=== PATIENT | male | born 1945 | race Caucasian/White ===

== ENCOUNTER 2018-01-08 20:51 | Observation (INO) | payer OTHER ==
--- NOTE | 2018-01-08 20:59 | PDOC ---
History of Present Illness - General History Source: Patient Exam Limitations: No Limitations - History of Present Illness Initial Comments: 01/08/18 21:40 The patient is a 72 year old female with a significant PMH of Type 2 diabetes, HTN, HLD, chronic kidney disease, and panic attacks who presents to the emergency department after accidentally taking a second Zoloft at 8:15PM today. The patient states he typically takes Zoloft 200mg and metformin 1000mg. The patient reports confusing the Zoloft for the metformin and accidentally taking a second dose of Zoloft. The patient was concerned about taking double his dose of Zoloft prompting him to call poison control who advised he should come to the ER for evaluation. The patient denies any symptoms after taking the medication. The patient denies difficulty ambulating, palpitations, chest pain, shortness of breath, headache, lightheadedness, and dizziness. Denies fever, chills, nausea, vomit, diarrhea and constipation. Denies dysuria, frequency, urgency and hematuria. Allergies: NKA Past surgical history: None reported. Social history: No reported alcohol, drug, or cigarette use. PCP: Dr. Henry. Medications: Atorvastatin, Zoloft, Valsartan, Alprazolam, Aspirin, and Metformin <Jazz Hudson - Last Filed: 01/08/18 21:39> <Belkis Quinn - Last Filed: 01/09/18 05:03> - General Chief Complaint: Overdose Stated Complaint: TOOK AN EXTRA ZOLOFT Time Seen by Provider: 01/08/18 20:58 Past History <Jazz Hudson - Last Filed: 01/08/18 21:39> - Past Medical History Diabetes: Yes HTN: Yes Hypercholesterolemia: Yes Kidney Stones: (CHRONIC KIDNEY DISEASE) Psychiatric Problems: Yes (PANIC ATTACK) - Immunization History Immunization Up to Date: Yes - Suicide/Smoking/Psychosocial Hx Smoking Status: No Smoking History: Never smoked Have you smoked in the past 12 months: No Number of Cigarettes Smoked Daily: 0 Hx Alcohol Use: No Drug/Substance Use Hx: No Substance Use Type: None <Belkis Quinn - Last Filed: 01/09/18 05:03> - Past Medical History Allergies/Adverse Reactions: Allergies Allergy/AdvReac Type Severity Reaction Status Date / Time epinephrine AdvReac Verified 10/29/15 13:50 Home Medications: Ambulatory Orders Atorvastatin Ca [Lipitor] 10 mg PO DAILY 02/17/12 Sertraline HCl [Zoloft] 200 mg PO DAILY 02/17/12 Valsartan/Hydrochlorothiazide [Diovan Hct 160-25 mg Tablet] 1 combo PO DAILY 19/07 Alprazolam 0.5 mg PO TID 10/29/15 Aspirin [Ecotrin] 81 mg PO DAILY 10/29/15 metFORMIN HCL [Metformin HCl] 1,000 mg PO BID 10/29/15 Review of Systems - Review of Systems Able to Perform ROS?: Yes Comments:: 01/08/18 21:39 Remainder of the review of systems is negative. <Jazz Hudson - Last Filed: 01/08/18 21:39> *Physical Exam - Vital Signs Last Vital Signs Temp Pulse Resp BP Pulse Ox 98.6 F 94 H 16 168/87 100 01/08/18 21:01 01/08/18 21:01 01/08/18 21:01 01/08/18 21:01 01/08/18 21:01 - Physical Exam Comments: 01/08/18 21:40 GENERAL: Awake, alert, and fully oriented, in no acute distress HEAD: No signs of trauma EYES: PERRLA, EOMI, sclera anicteric, conjunctiva clear ENT: Auricles normal inspection, hearing grossly normal, nares patent, oropharynx clear without exudates. Moist mucosa NECK: Normal ROM, supple, no lymphadenopathy, JVD, or masses LUNGS: Breath sounds equal, clear to auscultation bilaterally. No wheezes, and no crackles HEART: Regular rate and rhythm, normal S1 and S2, no murmurs, rubs or gallops ABDOMEN: (+) Upper abdominal hernia, nontender. Soft, nontender, normoactive bowel sounds. No guarding, no rebound. No masses EXTREMITIES: Normal range of motion, no edema. No clubbing or cyanosis. No cords, erythema, or tenderness NEUROLOGICAL: Cranial nerves II through XII grossly intact. Normal speech, normal gait SKIN: Warm, Dry, normal turgor, no rashes or lesions noted. <Jazz Hudson - Last Filed: 01/08/18 21:39> ED Treatment Course - LABORATORY CBC & Chemistry Diagram: 01/08/18 22:15 01/08/18 22:15 <Belkis Quinn - Last Filed: 01/09/18 05:03> Medical Decision Making - Medical Decision Making Documentation has been prepared under my direction and personally reviewed by me in its entirety. I attest that this documented accurately reflects all work, treatment, procedures and medical decision making performed by me. As noted above, this 72-year-old man with multiple medical problems and anxiety/ panic attacks for which he has taken Zoloft for 20 years, inadvertently took extra dose (200 mg) at 8:15 PM tonight. He had taken his morning dose as usual. He is asymptomatic except for feeling anxious regarding taking the extra dose. He had spoken to poison control and was advised to come to the emergency room. Physical exam reveals vital signs that are normal and no significant abnormalities on exam. 12-lead electrocardiogram is performed and shows normal sinus rhythm 81 bpm; intervals, axis and wave forms are all normal Poison control contacted. Workers Compensation Adjuster Bill (who had spoken to the patient and advised pt to come to the ED) explained that after 250 mg of sertraline was consumed in a 24-hour period, seizure threshold is decreased and serotonin syndrome possible. Therefore, 12 hour observation period is advised. The patient was informed of this and consents to plan. CBC/chemistry profile sent 01/08/18 23:01 Laboratory evaluation completed: CBC is essentially normal. Chemistry profile notable for BUN 28/creatinine 1.6. Previous creatinine value on record here was 1.3(10/29/15) Patient is unaware of his baseline BUN/creatinine levels, stating that he was unaware that he had any renal insufficiency. Other than mild elevation of random glucose (236), no other significant abnormalities on chemistry profile Case discussed with CASSIDY Hong of [facility]. Patient will be admitted under observation status. Urine tox screen added. <Belkis Quinn - Last Filed: 01/09/18 05:03> *DC/Admit/Observation/Transfer - Attestations Scribe Attestion: 01/08/18 21:40 Documentation prepared by Jazz Hudson, acting as medical biller for Belkis Quinn MD. <Jazz Hudson - Last Filed: 01/08/18 21:39> - Discharge Dispostion Decision to Admit order: Yes <Belkis Quinn - Last Filed: 01/09/18 05:03> Diagnosis at time of Disposition: Accidental drug overdose Qualifiers: Encounter type: initial encounter Qualified Code(s): T50.901A - Poisoning by unspecified drugs, medicaments and biological substances, accidental ( unintentional), initial encounter - Discharge Dispostion Condition at time of disposition: Stable
[2018-01-08] MEDS ORDERED: metFORMIN HCL 500 MG TABLET (FP) PO ONE (21:36)
[2018-01-08] MEDS ORDERED: metFORMIN HCL 500 MG TABLET (FP) ONE (21:45)
[2018-01-08 22:39] LABS: BASO % 0.8 % (0-2.0); EOS % 3.5 % (0-4.5); HEMATOCRIT 39.6 % (35.4-49); HEMOGLOBIN 13.8 GM/dl (11.7-16.9); LYMPH % 19.7 % (8-40); MCHC 34.8 g/dl (32.0-35.9); MEAN CELL VOLUME 86.2 fl (80-96); MEAN PLT VOLUME 7.4 fl (7.5-11.1); MONO % 8.9 % (3.8-10.2); NEUT % 67.1 % (42.8-82.8); PLATELET COUNT 271 K/MM3 (134-434); RDW 12.6 % (11.9-15.9); WHITE BLOOD COUNT 6.5 K/mm3 (4.0-10.8)
[2018-01-08 22:46] LABS: ALBUMIN 4.3 g/dl (3.5-5.0); ALK PHOS 34 U/L (32-92); ANION GAP 8 (8-16); BILIRUBIN,TOTAL 0.3 mg/dl (0.2-1.0); BLOOD UREA NITROGEN 28 mg/dl (7-18); CALCIUM 8.9 mg/dl (8.4-10.2); CHLORIDE 99 mmol/L (98-107); CO2 25 mmol/L (22-28); CREATININE 1.6 mg/dl (0.6-1.3); GLUCOSE,RANDOM 236 mg/dl (74-106); POTASSIUM 3.5 mmol/L (3.5-5.1); SGOT/AST 22 U/L (10-42); SGPT/ALT 16 U/L (10-40); SODIUM 132 mmol/L (136-145); TOT PROT 6.8 g/dl (6.4-8.3)
[2018-01-09 00:31] VITALS: TEMP 98; BMI 25.8
[2018-01-09 00:53] LABS: URINE APPEARANCE CLEAR; URINE BILIRUBIN NEGATIVE (<2.0 mg/dL); URINE BLOOD NEGATIVE (NEGATIVE); URINE COLOR STRAW; URINE GLUCOSE (UA) NEGATIVE (NEGATIVE); URINE KETONE NEGATIVE (NEGATIVE); URINE LEUK ESTERASE NEGATIVE (NEGATIVE); URINE NITRITE NEGATIVE (NEGATIVE); URINE PROTEIN NEGATIVE (NEGATIVE); URINE UROBILINOGEN NEGATIVE mg/dL (0.2-1.0)
[2018-01-09 01:01] LABS: COCAINE, UR NEGATIVE ng/ml (CUTOFF=300); METHADONE, UR NEGATIVE ng/ml (CUTOFF=300); OPIATES, URI NEGATIVE ng/ml (CUTOFF=300); PHENCYCLIDINE,URINE NEGATIVE ng/ml (CUTOFF=25); URINE AMPHETAMINES NEGATIVE ng/ml (CUTOFF=500); URINE BARBITURATES NEGATIVE ng/ml (CUTOFF=200); URINE BENZODIAZEPINES NEGATIVE ng/ml (CUTOFF=200)
--- NOTE | 2018-01-09 01:48 | HP ---
CHIEF COMPLAINT: Accidental Zoloft Overdose PCP: Dr. Romeo Cortez HISTORY OF PRESENT ILLNESS: This is a 72 y/o man with a past medical history of Anxiety, Depression, HTN, HLD, DM. Who presents to the ED after accidentally taking an additional Zoloft last night. Patient reports having his pill bottles next to each other and after realizing his mistake he called Poison Control, who advised him to be evaluated in the ER. Patient denies suicidal or homicidal ideation. Patient denies fever, chills, SOB, dizziness, CP, palpitations, AP, N/V/D, constipation , dysuria. ER course was notable for: (1) DOMINICK- BUN 28, Cr 1.6 (2) Na- 132 (3) EKG- NSR, no ST or TWI, no prolonged QT Recent Travel: None PAST MEDICAL HISTORY: See HPI PAST SURGICAL HISTORY: None Social History: Smoking: Never Alcohol: None Drugs: None Lives alone, Independent Family History: Father: Lung Ca, Mother: Healthy, age 102, natural causes Brother: Type I DM, Allergies epinephrine Adverse Reaction (Verified 10/29/15 13:50) HEARST RACES HOME MEDICATIONS: Home Medications Medication Instructions Recorded Atorvastatin Ca [Lipitor] 10 mg PO DAILY 02/17/12 Sertraline HCl [Zoloft] 200 mg PO DAILY 02/17/12 Valsartan/Hydrochlorothiazide 1 combo PO DAILY 02/17/12 [Diovan Hct 160-25 mg Tablet] Alprazolam 0.5 mg PO TID 10/29/15 Aspirin [Ecotrin] 81 mg PO DAILY 10/29/15 metFORMIN HCL [Metformin HCl] 1,000 mg PO BID 10/29/15 REVIEW OF SYSTEMS CONSTITUTIONAL: Absent: fever, chills, diaphoresis, generalized weakness, malaise, loss of appetite, weight change HEENT: Absent: rhinorrhea, nasal congestion, throat pain, throat swelling, difficulty swallowing, mouth swelling, ear pain, eye pain, visual changes CARDIOVASCULAR: Absent: chest pain, syncope, palpitations, irregular heart rate, lightheadedness , peripheral edema RESPIRATORY: Absent: cough, shortness of breath, dyspnea with exertion, orthopnea, wheezing, stridor, hemoptysis GASTROINTESTINAL: Absent: abdominal pain, abdominal distension, nausea, vomiting, diarrhea, constipation, melena, hematochezia GENITOURINARY: Absent: dysuria, frequency, urgency, hesitancy, hematuria, flank pain, genital pain MUSCULOSKELETAL: Absent: myalgia, arthralgia, joint swelling, back pain, neck pain SKIN: Absent: rash, itching, pallor HEMATOLOGIC/IMMUNOLOGIC: Absent: easy bleeding, easy bruising, lymphadenopathy, frequent infections ENDOCRINE: Absent: unexplained weight gain, unexplained weight loss, heat intolerance, cold intolerance NEUROLOGIC: Absent: headache, focal weakness or paresthesias, dizziness, unsteady gait, seizure, mental status changes, bladder or bowel incontinence PSYCHIATRIC: Absent: anxiety, depression, suicidal or homicidal ideation, hallucinations. PHYSICAL EXAMINATION Vital Signs - 24 hr 01/08/18 01/08/18 01/08/18 21:01 23:45 23:55 Temperature 98.6 F 98.0 F Pulse Rate 94 H 80 Respiratory 16 20 20 Rate Blood Pressure 168/87 147/69 O2 Sat by Pulse 100 Oximetry (%) GENERAL: Awake, alert, and fully oriented, in no acute distress. HEAD: Normal with no signs of trauma. EYES: Pupils equal, round and reactive to light, extraocular movements intact, sclera anicteric, conjunctiva clear. No lid lag. EARS, NOSE, THROAT: Ears normal, nares patent, oropharynx clear without exudates. Dry mucous membranes. NECK: Normal range of motion, supple without lymphadenopathy, JVD, or masses. LUNGS: Breath sounds equal, clear to auscultation bilaterally. No wheezes, and no crackles. No accessory muscle use. HEART: Regular rate and rhythm, normal S1 and S2 without murmur, rub or gallop. ABDOMEN: Soft, nontender, not distended, normoactive bowel sounds, no guarding, no rebound, no masses. No hepatomegaly or splenomegaly. MUSCULOSKELETAL: Normal range of motion at all joints. No bony deformities or tenderness. No CVA tenderness. UPPER EXTREMITIES: 2+ pulses, warm, well-perfused. No cyanosis. No clubbing. No peripheral edema. LOWER EXTREMITIES: 2+ pulses, warm, well-perfused. No calf tenderness. No peripheral edema. NEUROLOGICAL: Cranial nerves II-XII intact. Normal speech. Gait not observed. PSYCHIATRIC: Cooperative. Good eye contact. Appropriate mood and affect. SKIN: Warm, dry, normal turgor, no rashes or lesions noted, normal capillary refill. Laboratory Results - last 24 hr 01/08/18 01/08/18 01/08/18 22:15 22:15 23:59 WBC 6.5 RBC 4.60 Hgb 13.8 Hct 39.6 D MCV 86.2 MCH 30.0 MCHC 34.8 RDW 12.6 Plt Count 271 MPV 7.4 L Absolute Neuts (auto) 4.3 Neutrophils % 67.1 Lymphocytes % 19.7 Monocytes % 8.9 Eosinophils % 3.5 Basophils % 0.8 Sodium 132 L Potassium 3.5 Chloride 99 Carbon Dioxide 25 Anion Gap 8 BUN 28 H D Creatinine 1.6 H D Creat Clearance w eGFR 42.95 Random Glucose 236 H D Calcium 8.9 Total Bilirubin 0.3 AST 22 ALT 16 D Alkaline Phosphatase 34 Total Protein 6.8 Albumin 4.3 Urine Color Urine Appearance Urine pH Ur Specific [place] Urine Protein Urine Glucose (UA) Urine Ketones Urine Blood Urine Nitrite Urine Bilirubin Urine Urobilinogen Ur Leukocyte Esterase Opiates Screen Negative Methadone Screen Negative Barbiturate Screen Negative Phencyclidine Screen Negative Ur Amphetamines Screen Negative MDMA (Ecstasy) Screen Negative Benzodiazepines Screen Negative Cocaine Screen Negative U Marijuana (THC) Screen Negative 01/08/18 23:59 WBC RBC Hgb Hct MCV MCH MCHC RDW Plt Count MPV Absolute Neuts (auto) Neutrophils % Lymphocytes % Monocytes % Eosinophils % Basophils % Sodium Potassium Chloride Carbon Dioxide Anion Gap BUN Creatinine Creat Clearance w eGFR Random Glucose Calcium Total Bilirubin AST ALT Alkaline Phosphatase Total Protein Albumin Urine Color Straw Urine Appearance Clear Urine pH 5.0 Ur Specific [place] 1.010 Urine Protein Negative Urine Glucose (UA) Negative Urine Ketones Negative Urine Blood Negative Urine Nitrite Negative Urine Bilirubin Negative Urine Urobilinogen Negative Ur Leukocyte Esterase Negative Opiates Screen Methadone Screen Barbiturate Screen Phencyclidine Screen Ur Amphetamines Screen MDMA (Ecstasy) Screen Benzodiazepines Screen Cocaine Screen U Marijuana (THC) Screen ASSESSMENT/PLAN: This is a 72 y/o man with a PMHx of Anxiety, Depression, HTN, HLD, DM. Placed in Tele Observation for Accidental Sertraline Overdose, DOMINICK, Hyponatremia. Plan: 1. Accidental Sertraline Overdose - Continue cardiac monitoring - EKG- NSR no ST or TWI, no prolonged QT/QTC - Poison Control notified by ED attending, will continue to monitor for Serotonin Syndrome - Seizure Precautions - Fall Precautions - CBC, BMP in am 2. DOMINICK - Likely secondary to Dehydration or Medication - Gentle IVF - Repeat BMP in am 3. Hyponatremia - Likely secondary to Medication vs Dehydration vs SIADH - IVF - Monitor BMP 4. HTN - Stable - Continue Valsartan - Hold HCTZ secondary to DOMINICK/Hyponatremia - Monitor renal function 5. HLD - Continue Lipitor - Monitor LFTs 6. Anxiety/Depression - Hold Sertraline secondary to accidental overdose - Ativan prn 7. Diabetes Mellitus - BGMs - Continue Metformin - HgbA1C in am 8. FEN - Low Na, Diabetic Diet 9. DVT ppx - OOB - SCDs Code Status: Full Code Dispo: Tele Observation Problem List - Problem (1) Accidental drug overdose Code(s): T50.901A - POISONING BY UNSP DRUG/MEDS/BIOL SUBST, ACCIDENTAL, INIT Qualifiers: Encounter type: initial encounter Qualified Code(s): T50.901A - Poisoning by unspecified drugs, medicaments and biological substances, accidental ( unintentional), initial encounter (2) DOMINICK (acute kidney injury) Code(s): N17.9 - ACUTE KIDNEY FAILURE, UNSPECIFIED (3) Hyponatremia Code(s): E87.1 - HYPO-OSMOLALITY AND HYPONATREMIA (4) Diabetes mellitus Code(s): E11.9 - TYPE 2 DIABETES MELLITUS WITHOUT COMPLICATIONS (5) Panic anxiety syndrome Code(s): F41.0 - PANIC DISORDER [EPISODIC PAROXYSMAL ANXIETY] (6) HTN (hypertension) Code(s): I10 - ESSENTIAL (PRIMARY) HYPERTENSION (7) HLD (hyperlipidemia) Code(s): E78.5 - HYPERLIPIDEMIA, UNSPECIFIED Visit type - Emergency Visit Emergency Visit: Yes ED Registration Date: 01/08/18 Care time: The patient presented to the Emergency Department on the above date and was hospitalized for further evaluation of their emergent condition. - New Patient This patient is new to me today: Yes Date on this admission: 01/09/18 - Critical Care Critical Care patient: No Hospitalist Screening - Colonoscopy Questionnaire Colonoscopy Questionnaire: Colonoscopy Questionnaire - Patient: 50 - 75 years old and never had a screening colonoscopy: No History of colon or rectal polyps, or CA: No History of IBD, Crohn's disease or UC: No History of abdominal radiation therapy as a child: No - Relative: 1 with colon or rectal CA, or polyps at age 60 or younger: No Colon or rectal CA diagnosed at age 45 or younger: No Multiple relatives with colon or rectal CA: No - Outcome: Screening Result: Negative Screen
[2018-01-09] MEDS ORDERED: SODIUM CHLORIDE 1,000 ML IV SCH (03:45)
[2018-01-09] MEDS ORDERED: metFORMIN HCL 500 MG TABLET (FP) PO SCH (07:00)
[2018-01-09 09:06] LABS: BASO % 1.1 % (0-2.0); EOS % 4.4 % (0-4.5); HEMATOCRIT 40.2 % (35.4-49); HEMOGLOBIN 13.9 GM/dl (11.7-16.9); LYMPH % 25.5 % (8-40); MCHC 34.5 g/dl (32.0-35.9); MEAN CELL VOLUME 86.9 fl (80-96); MEAN PLT VOLUME 7.9 fl (7.5-11.1); MONO % 10.7 % (3.8-10.2); NEUT % 58.3 % (42.8-82.8); PLATELET COUNT 261 K/MM3 (134-434); RBC 4.63 M/mm3 (4.00-5.60); RDW 12.6 % (11.9-15.9); WHITE BLOOD COUNT 6.6 K/mm3 (4.0-10.8)
[2018-01-09 09:14] VITALS: BP 134/70; PULSE 81
[2018-01-09 09:35] LABS: ANION GAP 11 (8-16); BLOOD UREA NITROGEN 26 mg/dl (7-18); CHLORIDE 99 mmol/L (98-107); CO2 28 mmol/L (22-28); CREATININE 1.5 mg/dl (0.6-1.3); GLUCOSE,RANDOM 141 mg/dl (74-106); MAGNESIUM 1.6 mg/dL (1.8-2.4); PHOSPHOROUS 4.2 mg/dl (2.5-4.6); POTASSIUM 3.8 mmol/L (3.5-5.1); SODIUM 138 mmol/L (136-145)
[2018-01-09] MEDS ORDERED: ASPIRIN COATED 81 MG TABLET.EC PO SCH (10:00)
[2018-01-09] MEDS ORDERED: PATIENT'S OWN MEDICATION (NON-FORMULARY) (Valsartan/Hydrochlorothiazide [Diovan Hct 160-25 PO SCH (10:00)
[2018-01-09] MEDS ORDERED: HYDROCHLOROTHIAZIDE 25 MG TABLET (FP) PO SCH (10:00)
[2018-01-09] MEDS ORDERED: VALSARTAN 160 MG TABLET (UD) PO SCH (10:00)
--- NOTE | 2018-01-09 10:04 | DS ---
Physical Examination Vital Signs: Vital Signs Temperature 98.0 F 01/09/18 06:00 Pulse Rate 81 01/09/18 09:14 Respiratory Rate 18 01/09/18 09:14 Blood Pressure 134/70 01/09/18 09:14 O2 Sat by Pulse Oximetry (%) 96 01/09/18 09:14 Findings/Remarks: No signs of symptoms of serotonin syndrome. Labs: CBC, BMP 01/09/18 06:00 01/09/18 06:00 Discharge Summary Reason For Visit: TOOK AN EXTRA ZOLOFT Current Active Problems DOMINICK (acute kidney injury) (Acute) Accidental drug overdose (Acute) Diabetes mellitus (Acute) HLD (hyperlipidemia) (Acute) HTN (hypertension) (Acute) Hyponatremia (Acute) Hospital Course: eGFR is 49.2, patient can continue Metformin as outpatient. Instructed the patient to follow-up with his pcp within 2-3 days to have his kidney function rechecked and further advised on whether or not to stop Metformin. Condition: Stable - Instructions Diet, Activity, Other Instructions: Please return to the ED with new, persistent, or worsening symptoms. Please follow-up with your primary care provider within 2-3 days. You may restart Zoloft in the morning of 01/10/18. Referrals: Romeo Cortez [Primary Care Provider] - (Please follow-up with your primary care provider within the next 2-3 days to have blood work done to check your creatinine. While you were here it was 1.6 yesterday and today it was 1.5.) Disposition: HOME - Home Medications Comprehensive Discharge Medication List: Ambulatory Orders Atorvastatin Ca [Lipitor] 10 mg PO DAILY 02/17/12 Sertraline HCl [Zoloft -] 200 mg PO DAILY 02/17/12 Valsartan/Hydrochlorothiazide [Diovan Hct 160-25 mg Tablet] 1 combo PO DAILY 19/07 Alprazolam 0.5 mg PO TID 10/29/15 Aspirin [Ecotrin] 81 mg PO DAILY 10/29/15 metFORMIN HCL [Metformin HCl] 1,000 mg PO BID 10/29/15
[2018-01-09] MEDS ORDERED: INSULIN SLIDING SCALE (NOVOLOG) 1 VIAL SQ SCH (11:00)
--- NOTE | 2018-01-09 11:45 | EKG ---
Test Reason : Blood Pressure : / mmHG Vent. Rate : 081 BPM Atrial Rate : 081 BPM P-R Int : 192 ms QRS Dur : 088 ms QT Int : 378 ms P-R-T Axes : 055 019 040 degrees QTc Int : 439 ms NORMAL SINUS RHYTHM NORMAL ECG NO PREVIOUS ECGS AVAILABLE Confirmed by MD Reji, Derek ([id number]) on 01/09/2018 11:44:47 AM Referred By: ISABEL MYLES Confirmed By:Derek Mendoza MD
[2018-01-09] MEDS ORDERED: ATORVASTATIN CA 10 MG TABLET (FP) PO SCH (22:00)
== END 2018-01-09 10:45 | disposition home or self-care (01) ==
LOC: FER 20:51 → FM/S 23:55
PROVIDERS: ADMIT Internal Medicine; ATTEND Registered Nurse
PROC: 3E0337Z Introduction of Electrolytic and Water Balance Substance into Peripheral Vein, Percutaneous Approach (ICD-10-PCS; principal; 2018-01-08)
DX: T43.221A Poisoning by selective serotonin reuptake inhibitors, accidental (unintentional), initial encounter (principal); Y92.009 Unspecified place in unspecified non-institutional (private) residence as the place of occurrence of the external cause; E11.22 Type 2 diabetes mellitus with diabetic chronic kidney disease; I12.9 Hypertensive chronic kidney disease with stage 1 through stage 4 chronic kidney disease, or unspecified chronic kidney disease; N18.9 Chronic kidney disease, unspecified; N17.9 Acute kidney failure, unspecified; Z79.84 Long term (current) use of oral hypoglycemic drugs; E87.1 Hypo-osmolality and hyponatremia; E78.5 Hyperlipidemia, unspecified; F41.0 Panic disorder [episodic paroxysmal anxiety]; F41.9 Anxiety disorder, unspecified; F32.9 Major depressive disorder, single episode, unspecified
CPT/HCPCS: 36415; 80048; 80053; 80307; 81003; 82962; 83036; 83735; 84100; 85025; 93005; 99285-25; G0378; J7030